=== PATIENT | male | born 1975 | race Caucasian/White ===

== ENCOUNTER → 2022-05-28 10:36 | Outpatient (BNVA) | payer OTHER, SELFPAY | PROVIDERS: PCP Family Medicine; Visit Provider Internal Medicine | DX: S61.411A Laceration without foreign body of right hand, initial encounter (principal); W29.3XXA Contact with powered garden and outdoor hand tools and machinery, initial encounter | CPT/HCPCS: 12001; 99203 ==

== ENCOUNTER → 2022-05-31 13:47 | Outpatient (BNVA) | payer OTHER, SELFPAY | PROVIDERS: PCP Family Medicine; Visit Provider Internal Medicine | DX: S61.411D Laceration without foreign body of right hand, subsequent encounter (principal); W29.3XXD Contact with powered garden and outdoor hand tools and machinery, subsequent encounter | CPT/HCPCS: 99213 ==

== ENCOUNTER 2023-06-20 15:54 | Emergency (ER) | payer OTHER, MEDICAID, SELFPAY ==
--- NOTE | ~2023-06-20 | US_ITS ---
EXAMINATION: US SCROTUM CLINICAL INFORMATION: Pain and swelling. Rule out abscess.. COMPARISON: None available. TECHNIQUE: A sonogram of the scrotum was performed assessing chowdhury-scale appearance and color Doppler flow. Spectral Doppler analysis of the arterial and venous flow were performed in the testes bilaterally. FINDINGS: RIGHT: Right testicle measures 4.5 x 2.3 x 3.4 cm, volume 18 mL. No focal testicular parenchymal lesions are visualized. Spectral Doppler analysis of the arterial and venous flow is normal in the right testis. Right epididymal head is normal in size. No right hydrocele or varicocele is seen. Right epididymal Doppler flow is normal. LEFT: Left testicle measures 4 x 2.3 x 3.3 cm, volume 15 mL. There are 2 small simple cysts each measuring 2 mm. No other focal testicular parenchymal lesions are visualized. Spectral Doppler analysis of the arterial and venous flow is normal in the left testis. Left epididymal head is normal in size. There are 2 left epididymal head cysts measuring 6 mm and 3 mm. No left hydrocele or varicocele is seen. Left epididymal Doppler flow is normal. There is diffuse scrotal skin thickening. In the midline superior upper scrotum irregularly-shaped complex fluid collection with internal echoes measuring 2 x 2 x 1 cm. This has increased peripheral vascularity suggestive of abscess. US/US scrotum IMPRESSION: Diffuse scrotal thickening and superior midline irregularly-shaped complex fluid collection suggestive of an abscess measuring 2 x 2 x 1 cm. 2 small 2 mm left testicular simple appearing cysts. 2 small left epididymal head cysts.
--- NOTE | 2023-06-20 16:02 | ED_ITS ---
HPI - General Adult General Chief complaint: Urogenital-Male Stated complaint: cyst? Time Seen by Provider: 06/20/23 19:30 Source: patient Mode of arrival: ambulatory Limitations: no limitations History of Present Illness HPI narrative: 48 yo male no sig PMH notes he shaved his scrotum for the first time in a while on Tuesday/Tuesday he noticed a lump since then it has become more red/swollen and painful. No fevers, n/v/D. complaint: scrotal mass Onset (ago): day(s) (3) Location: genitals Radiation: non-radiation Severity: mild Quality: aching Pain Consistency: intermittent Relieving factors: rest Exacerbating factors: other (palpation) Associated symptoms: denies other symptoms Treatments prior to arrival: none Related Data Previous Rx's Medication Instructions Recorded cephalexin 500 mg capsule 500 mg PO QID 7 days #28 caps 06/20/23 doxycycline hyclate 100 mg capsule 100 mg PO BID 7 days #14 caps 06/20/23 morphine 15 mg immediate release 15 mg PO Q6H PRN pain #7 tabs 06/20/23 tablet Allergies Allergy/AdvReac Type Severity Reaction Status Date / Time No Known Allergies Allergy Verified 09/23/20 15:15 [No Known Allergies*] Review of Systems Review of Systems: Constitutional : No Fever, No Chills ENT/Mouth : No sore throat, No Rhinorrhea Eyes: No Eye Pain, No Swelling, No Redness Cardiovascular : No Chest Pain, No SOB Respiratory : No Cough, No Sputum Gastrointestinal : No Nausea, No Vomiting, No Diarrhea, No abdominal Pain Genitourinary : No Dysuria, No Hematuria Musculoskeletal : No joint pain, No Myalgias, No Joint Swelling Skin : No Skin Lesions, positive skin rash Neuro : No Weakness, No Numbness, No Headache Psych : No Anxiety, No Depression Heme/Lymph: No Bruising, No Bleeding,No Lymphadenopathy Endocrine : No Polyuria, No Polydipsia All other systems reviewed and are negative [facility] Past Medical History Attestation statement: The following information was validated with the patient. Medical History No pertinent past medical history Social History Social History Patient Tobacco Use Status: Never used Tobacco Advance Directives: No Advance Directives Information Provided: No Physical Exam ED Vital Signs: Vital Signs - 24 hr 06/20/23 16:03 Temperature 98.4 F Pulse Rate 81 Respiratory Rate 20 Blood Pressure 142/95 H Pulse Oximetry 100 Oxygen Delivery Method Room Air BMI result Body Mass Index 28.9 Appearance: Alert. Oriented X3. No acute distress. Eyes: Pupils equal, round and reactive to light. ENT: Pharynx normal. Neck: Normal inspection. Neck supple. CVS: Normal heart rate and rhythm. Pulses normal. Respiratory: No respiratory distress. Breath sounds normal. Abdomen: Soft and nontender. : fluctuant abscess noted right at the scrotal raphe it is about 3cm the scrotum is not tense I feel no crepitus there is no sig ttp, no extension noted onto the peritoneum Skin: Skin warm and dry. Normal skin color. Normal skin turgor. Extremities: No lower extremity edema. No calf ttp Neuro: Oriented X 3. No motor deficit. No sensory deficit. Course Course Course Narrative: RME performed by Renata Angulo PA-C. Patient is a 48 year old assigned male at presenting to the emergency department with a scrotal abscess. Patient placed back in the waiting room pending room availability. Medications Administered Discontinued Medications Generic Name Dose Route Start Last Admin Trade Name Freq PRN Reason Stop Dose Admin Lidocaine HCl 1 appl 06/20/23 20:07 06/20/23 20:16 Lidocaine 4 % Cream Kit TOPICAL 06/20/23 20:08 1 appl ONCE ONE Administration Protocol Procedures Abscess I/D Site: scrotum Local Anesthetic: lidocaine 1% Amount of anesthesia used (mL): 1 Technique: incised with blade Amount of fluid expressed (mL): 3 Sent for culture/gram staining?: No Irrigation: Yes Packing used?: none Medical Decision Making Medical Decision Making MDM Narrative: 48 yo male no PMH not a diabetic here with c/o scrotal mass after shaving - at this time exam consistent with abscess no systemic symptoms feels fine otherwise no extension onto the peritoneum and no crepitus felt. He is not toxic and it is not very painful. Will I+D area and start on oral antibiotics. US ordered to confirm. Differential Diagnosis Differential Diagnoses: The differential diagnosis associated with the presentation includes scrotal abscess, scrotal mass Admission/Observation Consideration of admission/observation: Escalation of care including admission/observation considered no systemic symptoms not toxic can trial oral antibiotics Independent Interpretation I performed an independent interpretation of an: Ultrasound Radiology Impression Discussion of test interpretation with radiology: I have reviewed the rad iologist's reading. External Record Review External record reviewed: Inpatient record Prescription Management I considered prescription management with: Pain Medication and Antibiotic Discharge Plan Discharge Clinical Impression: Abscess of scrotum Patient Disposition: Home, Self-Care Instructions: Abscess (ED), Abscess Incision and Drainage (DC) Additional Instructions: return for fevers, vomiting, increased redness or signs of infection. finish all antibiotics. it is okay to shower. there is a cut it will bleed but it should not have clots or have significant bleeding. On a cephalosporin?antibiotic, softer bowel movements are to be expected. Call your provider if you move your bowels more than 4 times a day, your bowel movements are almost all liquid, or you get a rash.?? On doxycycline, do not take pills immediately before going to bed and swallow pills with plenty of water. Avoid direct sunlight, iron, antacids, and Pepto Bismol. Call your provider if you develop new ringing in your ears, new problems hearing, dizziness, difficulty swallowing, rash, abdominal discomfort, nausea, or diarrhea.? Prescriptions: New doxycycline hyclate 100 mg capsule 100 mg PO BID 7 Days Qty: 14 0RF cephalexin 500 mg capsule 500 mg PO QID 7 Days Qty: 28 0RF morphine 15 mg tablet 15 mg PO Q6H PRN (Reason: pain) Qty: 7 0RF Rx Instructions: Partial Fill upon patient request.
[2023-06-20 16:03] VITALS: BP 142/95; PULSE 81; RESP 20; TEMP 36.9; O2SAT 100; BMI 28.9
[2023-06-20] MEDS: Lidocaine 4 % Cream KIT 1 APPL TOPICAL (20:16)
[2023-06-20] MEDS: Doxycycline Monohydrate 100 MG CAPSULE PO (21:22)
[2023-06-20] MEDS: cephALEXin 500 MG CAPSULE PO (21:22)
[2023-06-20] MEDS: Lidocaine HCl 1 % MPF 5 ML VIAL SUBCUT (21:22)
[2023-06-20 21:29] VITALS: BP 127/90; PULSE 78; RESP 18; TEMP 36.2; O2SAT 100
== END 2023-06-20 21:44 | disposition home or self-care (01) ==
PROVIDERS: Emergency Provider Emergency Medicine
DX: N49.2 Inflammatory disorders of scrotum (principal); N50.82 Scrotal pain; N50.89 Other specified disorders of the male genital organs
CPT/HCPCS: 55100; 76870; 99282; 99284

== ENCOUNTER 2023-06-22 11:26 | Outpatient (AMB) | payer MEDICAID, SELFPAY ==
--- NOTE | 2023-06-22 11:26 | AM.OFFWIN_ITS ---
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 He reports that over the last 6-9 months, he has had a worsening sensation of food being stuck in his throat when eating, or with food regurgitating back into his mouth after swallowing. He denies any sensation of heartburn, denies any pain with swallowing, denies fever. He reports he has lost about 30 lb over the last year due to this. He has difficulty eating, and must take very small bites /sips. He denies any alcohol use. He states he is down to about 3 cigarettes per day. Denies any abdominal pain, nausea, vomiting, or diarrhea. [facility] Medical History No pertinent past medical history Social History Patient Tobacco Use Status: Never used Tobacco Review of Systems Const All systems reviewed & are unremarkable except as noted in HPI and below Physical Exam Vital Signs: Last Vital Signs Temp 97.3 F 06/22/23 11:31 Pulse 81 06/22/23 11:31 BP 110/72 06/22/23 11:31 Pulse Ox 98 06/22/23 11:31 Oxygen Delivery Method Room Air 06/22/23 11:31 BMI result Body Mass Index 25.7 Const General: cooperative, healthy appearing and no acute distress Nutritional Appearance: average body habitus Limitations: no limitations HEENT Head: Yes normal to inspection Ears: hearing grossly normal bilaterally General nose exam: Normal external nose present Face and sinus: Yes normal facial exam Mouth: Normal oral and palatal mucosa present, oropharynx normal and moist mucous membranes Throat: Yes posterior oropharynx normal and Yes uvula midline Neck Neck: Yes normal visual inspection, Yes full ROM, Yes no lymphadenopathy, Yes trachea midline and Yes no JVD Thyroid: Thyroid normal Resp Effort & Inspection: normal respiratory effort and able to speak in complete sentences Auscultation: clear to auscultation bilaterally Cardio Jugular venous distension: no JVD Palpation: normal PMI Rate: regular rate Rhythm: regular rhythm GI Inspection: Yes normal to inspection Palpation (GI): Soft to palpation and No hepatosplenomegaly present Auscultation: normal bowel sounds Skin General skin exam: no rashes or lesions noted Extrem General: Yes no clubbing, cyanosis or edema Psych Appearance: grossly normal Mental Status: mental status grossly normal Speech and movement: Normal speech and movement present Assessment & Plan Assessment & Plan (1) Difficulty swallowing: Code(s): R13.10 - Dysphagia, unspecified Qualifiers: Dysphagia type: pharyngoesophageal phase Qualified Code(s): R13.14 - Dysphagia, pharyngoesophageal phase Plan: This is a very pleasant 48-year-old gentleman with increasing sensation of difficulty swallowing and weight loss over the last 6-9 months. He has frequent regurgitation of food and fluids, and must take very small bites of food/sips of liquids. I am concerned he may have esophageal stricture and he should be seen by GI. He agrees to this and would like referral. He does not have a PCP at this time. I have encouraged him to stop at the front desk team member prior to leaving today, to get established as a new patient with a PCP within our group, which he will do. In the meantime I will refer to GI and I have advised he restart his Prilosec otc to see if this helps. He should continue to eat small bites to avoid regurgitation. If this worsens or if he develops any new symptoms, he should go to the ED for evaluation. He agrees to this plan. Orders: Referrals Gastroenterology Referral R13.14 - Dysphagia, pharyngoesophageal phase Coding Level of Care Code Est Pt Level 3 (32597) Diagnoses Pharyngoesophageal dysphagia R13.14 Dysphagia type: pharyngoesophageal phase
[2023-06-22 11:31] VITALS: BP 110/72; PULSE 81; TEMP 36.3; O2SAT 98; BMI 25.7
== END 2023-06-22 11:56 | disposition home or self-care (01) ==
PROVIDERS: Visit Provider Nurse Practitioner Family
DX: R13.14 Dysphagia, pharyngoesophageal phase (principal)
CPT/HCPCS: 99213

== ENCOUNTER 2023-06-22 13:26 | Emergency (ER) | payer OTHER, MEDICAID, SELFPAY ==
[2023-06-22 14:44] VITALS: BP 137/84; PULSE 69; RESP 18; TEMP 37.1; O2SAT 100; BMI 26.6
--- NOTE | 2023-06-22 14:51 | ED.GENADULT ---
HPI - General Adult General Chief complaint: General Medical Stated complaint: Can't Swallow History of Present Illness HPI narrative: Left before completion of treatment by ED provider. Related Data Allergies Allergy/AdvReac Type Severity Reaction Status Date / Time No Known Allergies Allergy Verified 06/22/23 14:44 [No Known Allergies*] [facility] Past Medical History Medical History No pertinent past medical history Social History Social History Patient Tobacco Use Status: Never used Tobacco Physical Exam ED Vital Signs: Vital Signs - 24 hr 06/22/23 14:44 Temperature 98.7 F Pulse Rate 69 Respiratory Rate 18 Blood Pressure 137/84 Pulse Oximetry 100 Oxygen Delivery Method Room Air BMI result Body Mass Index 26.6 Course Course Course Narrative: RME: 48 yold male presents to the ED for sore throat for the past 8 months and trouble swallowing for the past 8 months. patient deneis any neck swelling, chest pain, or shrotness of breath. strep ordered Medical Decision Making Lab Data Labs: Lab Results 06/22/23 Range/Units 14:56 S. pyogenes GrpA SHARON Negative (Negative) Discharge Plan Discharge Clinical Impression: Well adult exam Patient Disposition: Left W/O Completing Treatment Discharge Date/Time: 06/22/23 19:30
[2023-06-22 15:17] LABS: IDNOW Serial# 08D9AD1C; Strep A Nucleic Acid Negative (Negative)
== END 2023-06-22 19:30 | disposition left against medical advice (07) ==
PROVIDERS: Emergency Provider Emergency Medicine
DX: J02.9 Acute pharyngitis, unspecified (principal)
CPT/HCPCS: 87651; 99281; 99283

== ENCOUNTER 2023-07-06 14:07 | Outpatient (AMB) | payer MEDICAID, SELFPAY ==
--- NOTE | 2023-07-06 14:11 | MHC.OFFVIS ---
Intake Vital Signs 07/06/23 14:13 Height 5 ft 8 in Weight 169 lb 12.095 oz BMI 25.8 Blood Pressure Location Lt brachial Position Sitting Intake Visit Reasons: Esophageal stricture Intake Note: Waldo presents in the office as a new patient for esophageal stricture. CC: HE states that he is having issues with his esophagus - he is unable to eat. Anything he eats will stop in his throat and he will have to drink something carbonated to help some of it go down. Allergies No Known Allergies [No Known Allergies*] Allergy (Verified 06/22/23 14:44) HPI HPI Comments History of Present Illness Details This is a 48y.o M with no significant PMH who is having difficulty swallowing for the past 6 months. Pt reports that sx started earlier this year around November. Initially had insiduous onset of sx with only solids which has now progressed to both solids and liquids for the past 2-3 months. Has had weight loss of almost 30 lbs in this duration, previously used to weigh 190-200lbs. Reports has hx of severe heartburn that would only go away with omeprazole but that has also disappeared and has not needed to take a PPI in a few months. Pt smokes cigarettes, has cut down to 3-4 cigs/day prev was smoking almost 10cigs/day. Rare etOH use. No NSAIDs. No fam hx of esophageal or gastric ca in FDRs. PFSH Medical History No pertinent past medical history Social History (Updated 07/06/23 @ 14:16 by SKYLAR Phan) Alcohol intake: current Alcohol intake frequency: does not drink Patient Tobacco Use Status: Current someday Tobacco user Tobacco use type: Cigarette Cigarettes Per Day: 3 Use of substances other than those prescribed or required for medical reasons: Yes Substance Use Type: Marijuana Review of Systems Const All systems reviewed & are unremarkable except as noted in HPI and below Physical Exam Vital Signs: BMI result Body Mass Index 25.8 Gen appear: NAD HEENT: nonicteric, no cervical lymphadenopathy Chest: CTA CVS: Regular S1/S2 Abd: soft, nontender, nondistended, bowel sounds + Ext: no peripheral edema Neuro: A/Ox3, noted to move all extremities spontaneously Psych: interacting appropriately Assessment & Plan Assessment & Plan (1) Difficulty swallowing: Code(s): R13.10 - Dysphagia, unspecified Qualifiers: Dysphagia type: esophageal phase Qualified Code(s): R13.19 - Other dysphagia (2) Unintentional weight loss: Code(s): R63.4 - Abnormal weight loss (3) Smoker: Code(s): F17.200 - Nicotine dependence, unspecified, uncomplicated Plan Reviewed with the pt that combination of progressive dysphagia with unintentional weight loss is worrisome for underlying malignant process such as mass or stricture. Other ddx include erosive esophagitis, peptic stricture, web/ring, dysmotility. Plan: - Urgent EGD to be booked in the next few weeks - Barium esophagogram - Start omeprazole 20 BID to mitigate any erosive esophagitis/peptic stricture - He was also counseled on complete smoking cessation - Follow up after EGD Orders: Orders FL barium swallow Today R13.10 - Dysphagia, unspecified Medications: New omeprazole 20 mg PO BID 30 days 60 caps 1RF Coding Level of Care Code New Pt Level 4 (36141) Diagnoses Esophageal dysphagia R13.19 Dysphagia type: esophageal phase Unintentional weight loss R63.4 Smoker F17.200
[2023-07-06 14:13] VITALS: BMI 25.8
== END 2023-07-06 15:25 | disposition home or self-care (01) ==
PROVIDERS: Visit Provider Internal Medicine
DX: R13.19 Other dysphagia (principal); R63.4 Abnormal weight loss; F17.200 Nicotine dependence, unspecified, uncomplicated
CPT/HCPCS: 99204

== ENCOUNTER → 2023-07-06 14:07 | Outpatient (BNVA) | payer OTHER, MEDICAID, SELFPAY | PROVIDERS: Visit Provider Internal Medicine ==

== ENCOUNTER 2023-08-02 07:58 | Day surgery (SDC) | payer OTHER, MEDICAID, SELFPAY ==
--- NOTE | 2023-08-01 13:26 | P.CONAN_ITS ---
Documented by User: Riana Del Castillo NP 08/01/23 13:27 HPI - Anesthesia Eval Consult details Narrative: 48yo M for Upper Endoscopy [facility] Active Problems Active Problems: All Active Problems (Updated 07/06/23 @ 15:36 by Mery Calixto MD) Smoker (Acute) Unintentional weight loss (Acute) Well adult exam (Acute) Past Medical History Medical History (Updated 07/06/23 @ 15:36 by Mery Calixto MD) No pertinent past medical history Surgical History Surgical History (Updated 08/02/23 @ 09:10 by Jojo Bacon RN) Hx of wisdom tooth extraction Social History Social History (Updated 07/06/23 @ 14:16 by SKYLAR Phan) Alcohol intake: current Alcohol intake frequency: does not drink Patient Tobacco Use Status: Current everyday Tobacco user Tobacco use type: Cigarette Cigarettes Per Day: 3 Substance Use Type: Marijuana Are you DNR?: No Advance Directives: No Advance Directives Information Provided: Yes Nutrition Risks: No Nutritional Risk Meds Allergies Allergy/AdvReac Type Severity Reaction Status Date / Time No Known Allergies Allergy Verified 06/22/23 14:44 [No Known Allergies*] Assessment and Plan Assessment Anesthesia Assessment: Chart Reviewed Documented by User: Coleman Felder MD 08/02/23 09:15 [facility] Past Medical History Medical History (Updated 07/06/23 @ 15:36 by Mery Calixto MD) No pertinent past medical history Family History Family history of problems with anesthesia: No Surgical History Surgical History (Updated 08/02/23 @ 09:10 by Jojo Bacon RN) Hx of wisdom tooth extraction History of Problems with Anesthesia: No Social History Social History (Updated 07/06/23 @ 14:16 by SKYLAR Phan) Alcohol intake: current Alcohol intake frequency: does not drink Patient Tobacco Use Status: Current everyday Tobacco user Tobacco use type: Cigarette Cigarettes Per Day: 3 Substance Use Type: Marijuana Are you DNR?: No Advance Directives: No Advance Directives Information Provided: Yes Nutrition Risks: No Nutritional Risk Meds Allergies Allergy/AdvReac Type Severity Reaction Status Date / Time No Known Allergies Allergy Verified 06/22/23 14:44 [No Known Allergies*] Exam Airway Mallampati Class: II TM Dist: >3cm Neck ROM: Limited Heart: rrr Lungs: cta Assessment and Plan Assessment Anesthesia Assessment: Anesthesia Plan Discussed Final Anesthetic Review Family History of Problems with Anesthesia: No History of Problems with Anesthesia: No NPO: Yes ASA Class: III Final Preanesthetic Review: No Changes in Pt Med Stat, Meds/Allgs Chart Reviewed, Consent Obtained/Reviewed and Anes Risks/Benef Reviewed Patient Risk: Intermediate Procedure Risk: Intermediate Anesthetic Plan Anesthetic Plan: GA and Agree w/ Assess. and Plan Disposition: Standard PACU
[2023-08-02 08:56] VITALS: BMI 25.5
[2023-08-02 09:07] VITALS: BP 121/72; PULSE 68; RESP 20; TEMP 36.6; O2SAT 99
[2023-08-02] MEDS: Lactated Ringers 1,000 ML 100 ML IVCONT (09:16)
--- NOTE | 2023-08-02 09:26 | MHC.SHP ---
Pre-Procedural Eval Section A Date of Service: 08/02/23 Section B Chief Complaint: Dysphagia, unspecified Relevant Family History (Specify if Yes): No Relevant Social History: Tobacco Use Present Medications: see Short Stay Collaborative assessment Medical History: No relevant PMH History of Previous Operations: No relevant previous surgery Allergies: Allergies Allergy/AdvReac Type Severity Reaction Status Date / Time No Known Allergies Allergy Verified 06/22/23 14:44 [No Known Allergies*] Review of Systems Sugical H&P ROS: Negative: Constitution, Cardiovascular, Respiratory, Neurological, Psychiatric, Hem-Onc, Allergic/Immunologic, Gastrointestinal, Genitourinary, Musculoskeletal, Integumentary, Endocrine and Eyes/Ears/Nose/Throat Exam Surgical H&P Exam: Normal: HEENT, Normal: Heart, Normal: Lungs, Normal: Extremities, Normal: Abdomen, Normal: Skin and Normal: Neurological Plan Diagnosis/Plan: Unchanged I have reviewed the history and physical and performed a pertinent physical examination on my patient. No changes have occurred unless specified. Time Spent With Patient Time: Total time managing care of this patient today ____ minutes.
--- NOTE | 2023-08-02 10:22 | W.PM.OPN ---
Operative Note Operative Note Date of Service: 08/02/23 Narrative: Procedure Description: EGD Indication: dysphagia Anesthesia: GA FLEXIBLE TRANSORAL UPPER GASTROINTESTINAL ENDOSCOPY UPPER ENDOSCOPY Consent: Indications for the procedure and potential complications of bleeding, perforation, reaction to medications and missed diagnosis were discussed with the patient and informed consent was obtained. Instrument: Olympus GIF H 190 J mid size upper endoscope Monitoring: Vital signs and clinical assessment, continuous EKG monitoring, Pulse oximetry, Carbon Dioxide monitoring and blood pressure monitoring were done throughout the procedure. Procedure: The patient was placed in the left lateral decubitis position and pre-procedure medications were administered and a bite block was placed. The endoscope was inserted into the mouth and advanced under direct vision to the third part of duodenum. A careful inspection was made as the upper endoscope was withdrawn including a retroflexed examination of the proximal stomach; Findings and interventions are described below. Findings: Larynx:normal Esophagus: GE junction at 45 cm, diaphragm hiatus at 45 cm, GEj v tight and esophagus was dilated with pool of mucous sitting in distal esophagus, suspicious for achalasia. Scope was passed thru and some heme then noted, balloon dilation done to 20 mm with more heme noted. Bx taken from distal and proximal esophagus. Stomach: Patchy gastric erythema. Biopsies were obtained. Grade 2 flap valve on retroflexed examination of the cardia. Duodenum: bulbar erythema, bx taken Intervention: Biopsies as noted above, balloon dilation Impression/Findings: possible achalasia duodenitis gastritis PLAN: refer for manometry once get results discuss options, if achalasia then pneumatic dilation vs POEM or Heller myotomy
[2023-08-02 11:14] VITALS: BP 121/84; PULSE 86; RESP 16; TEMP 36.6; O2SAT 99
[2023-08-02 11:19] VITALS: BP 132/84; PULSE 94; RESP 14; O2SAT 99
[2023-08-02 11:24] VITALS: BP 130/78; PULSE 85; RESP 15; O2SAT 99
[2023-08-02 11:29] VITALS: BP 134/81; PULSE 90; RESP 14; O2SAT 99
[2023-08-02 11:44] VITALS: BP 133/84; PULSE 75; RESP 14; TEMP 36.6; O2SAT 100
== END 2023-08-02 12:28 | disposition home or self-care (01) ==
PROVIDERS: Visit Provider Internal Medicine Gastroenterology
PROC: 0DJ08ZZ Inspection of Upper Intestinal Tract, Via Natural or Artificial Opening Endoscopic (ICD-10-PCS; CPT 43235; principal; 2023-08-02 10:30)
DX: K29.80 Duodenitis without bleeding (principal); K29.70 Gastritis, unspecified, without bleeding; R13.10 Dysphagia, unspecified; R63.4 Abnormal weight loss; F12.90 Cannabis use, unspecified, uncomplicated; F17.210 Nicotine dependence, cigarettes, uncomplicated
CPT/HCPCS: 43249; 43239; 88305; 88342; C1726; J0330; J2704

== ENCOUNTER → 2023-08-02 07:58 | Outpatient (BNV) | payer OTHER, MEDICAID, SELFPAY | PROVIDERS: Visit Provider Internal Medicine Gastroenterology | DX: R13.10 Dysphagia, unspecified (principal); K29.80 Duodenitis without bleeding; K29.70 Gastritis, unspecified, without bleeding | CPT/HCPCS: 43239; 43249 ==